=== PATIENT | male | born 1990 | race Caucasian/White ===

== ENCOUNTER 2020-02-13 08:51 | Inpatient (IN) | payer OTHER ==
[~2020-02-13] VITALS: Ht 165.1 cm; Wt 86.0 kg
[2020-02-13] VITALS (8 sets, daily range): BP systolic 118–140; BP diastolic 68–91
[2020-02-13] MEDS ORDERED: cefOXitin SODIUM IV Push 2 GM VIAL. IVP PRN (10:15)
[2020-02-13] MEDS ORDERED: IV RINGERS,LACTATED 1000ML 1,000 ML IV SCH (11:04)
[2020-02-13] MEDS ORDERED: ONDANSETRON PF 4 MG/2 ML VIAL. IV PRN (11:15)
[2020-02-13] MEDS ORDERED: HYDROmorphone 2 MG/ML VIAL IV PRN (11:15)
[2020-02-13] MEDS ORDERED: LIDOCAINE 1% PF 2 ML VIAL. ID PRN (11:15)
[2020-02-13] MEDS ORDERED: fentaNYL PF VIAL 100 MCG/2 ML VIAL IV PRN ×2 (11:15)
[2020-02-13] MEDS ORDERED: PROCHLORPERAZINE 10 MG/2 ML VIAL. IV PRN (11:15)
[2020-02-13] MEDS ORDERED: MORPHINE SULFATE 2 MG/ML VIAL. IV PRN (11:15)
--- NOTE | 2020-02-13 11:38 | PDOC1 ---
History and Physical Date of Admission Date of Admission DATE: 02/13/20 TIME: 11:32 Identification/Chief Complaint Chief Complaint RLQ abd pain Source Source: Chart review, Patient History of Present Illness History of Present Illness 29 yo M with c/o abd pain starting at 2300 last night, localizing RLQ. Pt seen in [facility] and transferred to [facility] for definitive care. He is seen in preop. Past Medical History Cardiovascular: No pertinent hx Past Surgical History Past Surgical History: No pertinent history Family History Family History: No Significant Social History Smoke: No Current Medications Current Medications Current Medications Cefoxitin Sodium (Mefoxin) 2 gm 1X PREOP PRN IVP PRIOR TO PROCEDURE; Start 02/13/20 at 10:15; Stop 02/13/20 at 18:00 Ondansetron HCl (Zofran) 4 mg PRN Q6HRS PRN IV NAUSEA/VOMITING; Start 02/13/20 at 11:15; Stop 02/13/20 at 19:00 Fentanyl Citrate (Fentanyl 2ml Vial) 25 mcg PRN Q5MIN PRN IV MILD PAIN 1-3; Start 02/13/20 at 11:15; Stop 02/13/20 at 19:00 Fentanyl Citrate (Fentanyl 2ml Vial) 50 mcg PRN Q5MIN PRN IV MODERATE TO SEVERE PAIN; Start 02/13/20 at 11:15; Stop 02/13/20 at 19:00 Morphine Sulfate (Morphine Sulfate) 1 mg PRN Q10MIN PRN IV SEVERE PAIN 7-10; Start 02/13/20 at 11:15; Stop 02/13/20 at 19:00 Ringer's Solution 1,000 ml @ 30 mls/hr Q24H IV Last administered on 02/13/20at 11:08; Start 02/13/20 at 11:04; Stop 02/13/20 at 23:03 Lidocaine HCl (Xylocaine-Mpf 1% 2ml Vial) 2 ml PRN 1X PRN ID PRIOR TO IV START; Start 02/13/20 at 11:15; Stop 02/13/20 at 19:00 Hydromorphone HCl (Dilaudid) 0.5 mg PRN Q10MIN PRN IV SEV PAIN, Second choice; Start 02/13/20 at 11:15; Stop 02/13/20 at 19:00 Prochlorperazine Edisylate (Compazine) 5 mg PACU PRN PRN IV NAUSEA, MRX1; Start 02/13/20 at 11:15; Stop 02/13/20 at 19:00 Allergies Allergies: Coded Allergies: No Known Drug Allergies (Unverified , 02/13/20) ROS Gastrointestinal: Yes Nausea, Yes Abdominal Pain Physical Exam General: Alert, Oriented X3, Cooperative, mild distress HEENT: Atraumatic, EOMI Lungs: Normal air movement Abdomen: Soft, Other (TTP RLQ) Rectal Exam: not examined Extremities: No clubbing, No cyanosis Skin: No rashes, No breakdown Neuro: Normal speech, Sensation intact Psych/Mental Status: Mental status NL, Mood NL Vitals Vitals Vital Signs Date Time Temp Pulse Resp B/P (MAP) Pulse Ox O2 Delivery O2 Flow Rate FiO2 02/13/20 11:00 98.4 89 16 129/91 (104) 96 Room Air 98.4 Labs Labs elevated wbc, labs at [facility] reviewed Images Images CT c/w appendicitis VTE Prophylaxis Ordered VTE Prophylaxis Devices: Yes VTE Pharmacological Prophylaxi: Contraindicated Assessment/Plan Assessment/Plan Appendicitis TO OR for laparoscopic versus open appendectomy. R/R/B/a d/w pt. Risks, including, but not limited to: bleeding, infection, damage to surrounding structures, risk of anesthesia, risk of open. He appears to understand, his questions are answered and he elects to proceed. Justicifation of Admission Dx: Justifications for Admission: Justification of Admission Dx: Yes Sepsis: Infection REBECCA BENITEZ MD Feb 13, 2020 11:38
[2020-02-13] MEDS ORDERED: BUPIVACAINE-EPI 0.5%-1:200000 MPF 30 ML VIAL. ONE (11:47)
[2020-02-13] MEDS: IV NORMAL SALINE 1000ML BAG 1,000 ML IV SCH (12:44)
[2020-02-13] MEDS ORDERED: KETOROLAC 30 MG/ML VIAL. IV PRN (12:45)
[2020-02-13] MEDS ORDERED: NALOXONE 0.4 MG/ML VIAL. IV PRN (12:45)
[2020-02-13] MEDS ORDERED: 0.9 % SODIUM CHLORIDE 10 ML DISP.SYRIN. IV PRN (12:45)
--- NOTE | 2020-02-13 12:52 | PDOC4 ---
OPERATIVE NOTE Date: Date: Feb 13, 2020 Pre-Op Diagnosis: Appendicitis Post-Op Diagnosis: same Procedure Performed: laparoscopic appendectomy Surgeon: Brandon Benitez Anesthesia Type: GETA plus local Blood Loss: 50 Specimans Obtained: appendix Findings: indurated, erythematous appendix Complications: none Operative Note: After obtaining informed consent, patient was taken to OR, induced under GETA and prepped in the usual fashion. 5 mm port placed LLQ and suprapubic, 12 port placed umbilical, all under laparoscopic guidance. Abdominal cavity was explored and otherwise normal, including normal liver and siva egg blue gallbladder. Appendix grasped and defect created in mesoappendix. General load LIDIA taken across base and vascular load taken across mesoappendix. Additional hemostasis obtained with clips. Appendix placed in bag, delivered and sent to pathology. Copious irrigation. No evidence of bleeding or other pathology. Ports removed without bleeding. Fascia repaired with 0 vicryl. Skin repaired with 4 0 monocryl. Dressing placed. Patient tolerated procedure well and sent to PACU in stable condition. All counts correct. Wound class is 3. REBECCA BENITEZ MD Feb 13, 2020 12:52
[2020-02-13] MEDS: IV RINGERS,LACTATED 1000ML 1,000 ML IV SCH (13:24)
[2020-02-13] MEDS: DOCUSATE SODIUM 100 MG CAPSULE. PO SCH (21:28)
[2020-02-14] MEDS: IV RINGERS,LACTATED 1000ML 1,000 ML IV SCH ×2 (00:48→08:44)
[2020-02-14 03:00] VITALS: BP 123/79
[2020-02-14] MEDS: HYDROcodone/APAP 5/325MG 1 TAB TABLET PO PRN ×2 (05:06→12:30)
[2020-02-14 05:51] LABS: CALCIUM 8.8 mg/dL (8.5-10.1); CREATININE 0.9 mg/dL (0.7-1.3); GFR 101.2; POTASSIUM 4.4 mmol/L (3.5-5.1)
[2020-02-14 06:11] LABS: BASO % 0 % (0-3); EOS % 0 % (0-3); HEMOGLOBIN 14.3 g/dL (13.0-17.5); LYMPH # 1.9 x10^3/uL (1.0-4.8); LYMPH % 15 % (24-48); MEAN CORPUSCULAR HEMOGLOBIN 28 pg (25-35); MEAN CORPUSCULAR HGB CONC 34 g/dL (31-37); MEAN CORPUSCULAR VOLUME 82 fL (79-100); MONO # 0.8 x10^3/uL (0.0-1.1); MONO % 6 % (0-9); NEUT # 10.2 x10^3/uL (1.8-7.7); NEUT % 79 % (31-73); PLATELET COUNT 247 x10^3/uL (140-400); RED CELL DISTRIBUTION WIDTH 13.8 % (11.5-14.5)
[2020-02-14 07:59] VITALS: BP 131/83
[2020-02-14] MEDS: DOCUSATE SODIUM 100 MG CAPSULE. PO SCH (08:29)
[2020-02-14 11:46] VITALS: BP 134/82
[2020-02-14] MEDS: IV NORMAL SALINE 1000ML BAG 1,000 ML IV SCH (12:44)
[2020-02-14] MEDS ORDERED: DOCU-153 PO (14:12)
[2020-02-14] MEDS ORDERED: HYDR-2761 PO (14:12)
--- NOTE | 2020-02-14 14:18 | DISCH ---
DISCHARGE INSTRUCTIONS Condition on Discharge Condition on Discharge: Stable Activity After Discharge Activity Instructions for Disc: Resume previous activity Other activity instructions: no lifting > 20 lbs Lifting Instructions after Dis: No heavy lifting Driving Instructions after Dis: Do not drive Diet after Discharge Diet after Discharge: Regular Wound Incision Care Wound/Incision Care: May get incision wet, No wound care needed Follow-Up Follow up with: Dr White 2 weeks, call to schedule [phone] ANDRESSA HERNANDEZ APRN Feb 14, 2020 14:18
--- NOTE | 2020-02-14 15:23 | NUR ---
Gave patient discharge instruction about post op/incision care, medications, activity limits and diet. Patient left via ambulation with spouse. Patient was A/Ox4 and stable.
--- NOTE | 2020-02-14 16:33 | PDOC3 ---
Discharge Summary Visit Information Date of Admission: Feb 13, 2020 Date of Discharge: Feb 14, 2020 Admitting Diagnosis: acute appendicitis Final Diagnosis acute appendicitis Brief Hospital Course Allergies Allergies Coded Allergies Type Severity Reaction Last Updated Verified No Known Drug Allergies 02/13/20 No Vital Signs Vital Signs Date Time Temp Pulse Resp B/P (MAP) Pulse Ox O2 Delivery O2 Flow Rate FiO2 02/14/20 13:30 14 Room Air 02/14/20 11:46 97.6 93 134/82 (99) 97 97.6 02/14/20 06:15 10.0 Lab Results Laboratory Tests Test 02/14/20 05:00 White Blood Count 13.0 x10^3/uL (4.0-11.0) Red Blood Count 5.10 x10^6/uL (4.30-5.70) Hemoglobin 14.3 g/dL (13.0-17.5) Hematocrit 42.0 % (39.0-53.0) Mean Corpuscular Volume 82 fL (79-100) Mean Corpuscular Hemoglobin 28 pg (25-35) Mean Corpuscular Hemoglobin Concent 34 g/dL (31-37) Red Cell Distribution Width 13.8 % (11.5-14.5) Platelet Count 247 x10^3/uL (140-400) Neutrophils (%) (Auto) 79 % (31-73) Lymphocytes (%) (Auto) 15 % (24-48) Monocytes (%) (Auto) 6 % (0-9) Eosinophils (%) (Auto) 0 % (0-3) Basophils (%) (Auto) 0 % (0-3) Neutrophils # (Auto) 10.2 x10^3/uL (1.8-7.7) Lymphocytes # (Auto) 1.9 x10^3/uL (1.0-4.8) Monocytes # (Auto) 0.8 x10^3/uL (0.0-1.1) Eosinophils # (Auto) 0.0 x10^3/uL (0.0-0.7) Basophils # (Auto) 0.0 x10^3/uL (0.0-0.2) Sodium Level 141 mmol/L (136-145) Potassium Level 4.4 mmol/L (3.5-5.1) Chloride Level 106 mmol/L (98-107) Carbon Dioxide Level 25 mmol/L (21-32) Anion Gap 10 (6-14) Blood Urea Nitrogen 10 mg/dL (8-26) Creatinine 0.9 mg/dL (0.7-1.3) Estimated GFR (Cockcroft-Gault) 101.2 Glucose Level 117 mg/dL (70-99) Calcium Level 8.8 mg/dL (8.5-10.1) Laboratory Tests Test 02/14/20 05:00 White Blood Count 13.0 x10^3/uL (4.0-11.0) Red Blood Count 5.10 x10^6/uL (4.30-5.70) Hemoglobin 14.3 g/dL (13.0-17.5) Hematocrit 42.0 % (39.0-53.0) Mean Corpuscular Volume 82 fL (79-100) Mean Corpuscular Hemoglobin 28 pg (25-35) Mean Corpuscular Hemoglobin Concent 34 g/dL (31-37) Red Cell Distribution Width 13.8 % (11.5-14.5) Platelet Count 247 x10^3/uL (140-400) Neutrophils (%) (Auto) 79 % (31-73) Lymphocytes (%) (Auto) 15 % (24-48) Monocytes (%) (Auto) 6 % (0-9) Eosinophils (%) (Auto) 0 % (0-3) Basophils (%) (Auto) 0 % (0-3) Neutrophils # (Auto) 10.2 x10^3/uL (1.8-7.7) Lymphocytes # (Auto) 1.9 x10^3/uL (1.0-4.8) Monocytes # (Auto) 0.8 x10^3/uL (0.0-1.1) Eosinophils # (Auto) 0.0 x10^3/uL (0.0-0.7) Basophils # (Auto) 0.0 x10^3/uL (0.0-0.2) Sodium Level 141 mmol/L (136-145) Potassium Level 4.4 mmol/L (3.5-5.1) Chloride Level 106 mmol/L (98-107) Carbon Dioxide Level 25 mmol/L (21-32) Anion Gap 10 (6-14) Blood Urea Nitrogen 10 mg/dL (8-26) Creatinine 0.9 mg/dL (0.7-1.3) Estimated GFR (Cockcroft-Gault) 101.2 Glucose Level 117 mg/dL (70-99) Calcium Level 8.8 mg/dL (8.5-10.1) Brief Hospital Course Mr. Cabral is a 29 old male who presented with acute appendicitis. He underwent laparoscopic appendectomy, postoperatively tolerating diet, ambulating, and pain controlled. Ready for discharge home Assessment Assessment a/o, no acute distress abdomen soft, ND, lap dressings dry Discharge Information Condition at Discharge: Stable Follow Up: Weeks (2) Disposition/Orders: D/C to Home Scheduled Docusate Sodium (Dok) 100 Mg Capsule, 100 MG PO BID for constipation, #60 Prescribed by: Andressa Hernandez on 02/14/20 1412 Scheduled PRN Hydrocodone Bit/Acetaminophen (Hydrocodone-Apap 5-325 ) 1 Tab Tablet, 1 TAB PO PRN Q4HRS PRN for MILD PAIN 1-3, #30 Ref 0 Prescribed by: Andressa Hernandez on 02/14/20 1412 Justicifation of Admission Dx: Justifications for Admission: Justification of Admission Dx: Yes Sepsis: Infection ANDRESSA HERNANDEZ [employer] Feb 14, 2020 16:33
--- NOTE | 2020-02-16 14:07 | PATHOLOGY ---
[facility] Accession Number: [id number] . 01 Material submitted: . appendix - APPENDIX . 01 Clinical history: . None provided. . 02 Diagnosis: Appendix, appendectomy: - Acute appendicitis with serosal exudate. LBQ 02/16/2020 1205 Local . 02 Comment: There is no evidence of rupture. (JPM/db; 02/16/2020) . 02 Electronically signed: . Rod Marinelli MD, Pathologist NPI- [id number] . 01 Gross description: . Received in formalin labeled "Rand Mathews., Phuc, appendix" is an appendix measuring 5.6 cm in length and 0.8 cm in diameter. There is an attached portion of mesoappendix measuring 5.8 x 2.8 x 1.5 cm. The proximal margin is closed with a staple line. The serosa is hogan-white with extensive purulent exudate. The specimen is sectioned to reveal no fecaliths or perforations, and a luminal diameter of 0.3 cm. [employer] sections are submitted in cassette A1, with the proximal margin inked black. ([facility] [place]; 02/14/2020) [facility] 02/14/2020 1159 Local . 02 Pathologist provided ICD-10: K35.80 . 02 CPT . 442227 Specimen Comment: A courtesy copy of this report has been sent to [phone] Specimen Comment: Report sent to Performed at: 01 [facility] [address] [id number] MD Jose Fernandez MD Phone: [phone] Performed at: 02 [facility] [address] [place], [place] [id number] MD Rod Marinelli MD Phone: [phone]
== END 2020-02-14 15:52 | disposition home or self-care (01) | DRG 343 ==
LOC: 4 NORTH 08:51
PROVIDERS: ADMIT Surgery; ATTEND Surgery
PROC: 0DTJ4ZZ Resection of Appendix, Percutaneous Endoscopic Approach (ICD-10-PCS; principal; 2020-02-13 11:30)
DX: K35.80 Unspecified acute appendicitis (principal); Z20.828 Contact with and (suspected) exposure to other viral communicable diseases; Z79.899 Other long term (current) drug therapy
CPT/HCPCS: 36415; 80048; 85025; 88304; 96361; 96374; 96375; A7015; J0694; J1885; J7030; J7120; 99285-25; G0378; U0003-CS